=== PATIENT | female | born 1955 | race Caucasian/White ===

== ENCOUNTER → 2017-03-01 | Day surgery (SDC) | payer OTHER ==
[2017-03-01] VITALS (9 sets, daily range): BP systolic 126–140; BP diastolic 66–83; PULSE 55–62; RESP 12–19; O2SAT 97–99
[~2017-03-01] VITALS: Ht 172.7 cm; Wt 80.7 kg
[~2017-03-01] MED LIST: Albuterol-Ipratropium 3 mL Inhalation Solution NEB PRN; Atropine 0.4 mg/mL Inj IVPUSH PRN; Bupivacaine-MPF 0.5% W/EPI 30 mL Inj INFILTRATE ONE; CALC-714 PO; CeFAZolin Inj 2 gm / 50mL D5W IV ONE; Dexamethasone 4 mg/mL Inj INTRARTICU ONE; Dexamethasone 4 mg/mL Inj IVPUSH PRN; Dexamethasone 4 mg/mL Inj ONE; EPHEDrine Sulfate 50 mg/mL Inj IVPUSH PRN; HYDROmorphone 1 mg/mL Inj IVPUSH PRN; Labetalol 5 mg/mL 4 mL Inj IV PRN; Lactated Ringer's 1,000 ML IV ONE; Lactated Ringer's 1,000 ML IV SCH; Lactated Ringer's 500 ML IV PRN; MetoCLOpramide 5 mg/mL 2 mL Inj IVPUSH PRN; Ondansetron 2 mg/mL 2 mL Inj IVPUSH PRN; Ondansetron 2 mg/mL 2 mL Inj ONE; Phenylephrine 10,000 mCg/mL Inj IVPUSH PRN; Propofol 10,000 mCg/mL 20 mL Inj ONE; VIT1TABL95 PO; fentaNYL-PF 50 mCg/mL 2 mL Inj IVPUSH PRN
--- NOTE | 2017-03-01 07:32 | PCM.HPANE ---
Patient Data Date of Service: Mar 01, 2017 Surgeon Admitting Provider: Attending Provider:Grupo Mendiola MD Primary Care Physician:Josee Villalpando MD Other Provider:Car Tanner Anesthesia Reason for Visit Right Knee Arthritis Ht/WT & BMI Height (Feet): 5 Height (Inches): 8.00 Weight (Kilograms): 80.730 Body Mass Index 26.00 Allergies Coded Allergies: codeine (Unverified Allergy, Unknown, 02/26/17) ENTERED FROM UNCODED ALLERGIES Uncoded Allergies: CODEINE (Allergy, Unknown, 05/03/12) CODEINE (Generic ADR) (Adverse Reaction, Unknown, Y, 05/03/12) N/V Past Anesthesia History Anesthesia History: Positive for:: Anesthesia Reactions (post anesthic sickness for 6 months), Denies:: Abnormal Airway, Difficult Intubation, Fam Anesthesia Reaction, Fam Malignant Hypertherm, Malignant Hyperthermia Diabetes History Hx Diabetes?: No MRSA MRSA: No Medications Home Meds Incl Beta Federico: No Reported Medications Vit D3/Folic Acid/B2/B6/B12 (Folgard Tablet)1 Each Tablet1 Each PO 02/19/17 Calcium Carb/Magnesium Cmb #10 (Randell-Mag Tablet Chewable)1 Each Tab.[email or web address] Each PO 02/19/17 History History of ENT Problems?: No HEENT History: Denies:: Abnormal Airway Cataracts Difficult Intubation Dysphagia Glaucoma Hearing Problem Sinus Problem TMJ Denture Type: None Teeth Condition: Within Normal Limits Hx of Heart Problems?: Yes Cardiovascular History: Denies:: AICD Heart Murmur Hypertension Irregular Heartbeat Pacemaker Peripheral Vascular Rheumatic Fever Thrombophlebitis Valvular Heart Disease Hx of Respiratory Problem?: Yes Respiratory History: Positive for:: Cough Denies:: Asthma COPD Chest Surgery Dyspnea Emphysema Hemoptysis Oxygen Administration Pneumonia Pulmonary Embolism Tuberculosis Use of C-PAP Machine Hx Neurologic Problems?: No Neurological History: Denies:: Alzheimer's Disease CVA Dementia Dizziness Headaches Multiple Sclerosis Parkinson's Disease Seizures TIA Hx of GI Problems?: No Hx of Problems?: No Female Hx: Denies:: Currently Endometriosis Pelvic Inflammatory Problems with Breasts? Skin History: Denies:: History Skin Disorders? Pressure Ulcers Hx Musculoskeletal Problems?: Yes Musculoskeletal History: Positive for:: Degenerative Joint (Both knees) Osteoarthritis (Both knees) Denies:: Fibromyalgia Joint Replacement Musculoskeletal Trauma Myasthenia Gravis Rheumatoid Arthritis Systemic Lupus Hx Surgeries?: Yes Hx Any Other Health Problems?: Yes Other History: Positive for:: Hospitalization Denies:: Cancer Endocrine Disease Thyroid Disease History Blood Transfusions: Positive for:: Accept Blood Products? Denies:: Blood Transfusions Hx Diabetes: No Hx Alcohol Use: NoHx Substance Use: Yes (Topical) Stop/Bang S-Snoring: Do You Snore Loudly: Yes T-Tired: feel tired, fatigued: Yes O-Obsered: Observed not breath: No P-Blood Pressure: treated: No B- Body Mass Index > 35 kg/m2: No A- Age over 50: Yes N- Neck Large Circumference: No G- Gender Male: No RAMON Total Score: 3 RAMON Risk Assessment: High Risk, =/>3 Yes Risk Assessment Category Category 1A: Patient has history of documented sleep apnea, and HAS NOT received any narcotic, sedative or anesthesia administration during this stay. Category 1B: Patient has history of documented sleep apnea, and HAS received any narcotic , sedative or anesthesia administration during this stay Category 2: Patient has SUSPECTED Obstructive Sleep Apnea, and HAS received any narcotic , sedative or anesthesia administration during this stay. Category 3: Patient has SUSPECTED Obstructive Sleep Apnea and HAS NOT received narcotic, sedative or anesthesia administration during this stay. Category 4: Outpatient in Procedural Areas with known sleep apnea or who screen positive for High Risk via the STOP/BANG questionnaire. Exam Exam Vital Signs Vital Signs Date Time Temp Pulse Resp B/P Pulse Ox O2 Delivery O2 Flow Rate FiO2 03/01/17 06:26 36.8 55 17 138/66 97 Room Air General Appearance: Alert, Oriented X3, Cooperative, No Acute Distress HEENT/AIRWAY: MP 1 Lungs: Normal Air Movement Heart: Exam Unremarkable Meds/Labs/Diagnostics Admission Meds Current Medications Lactated Ringer's (Lr) 1,000 ml @ ud STK-MED ONCE IV Last administered on 03/01t 06:33; Start 03/01/17 at 06:33; Stop 03/01/17 at 06:34; Status DC Plan Impression Patient chart reviewed, patient interviewed and anesthestic plan with risks, benefits, and alternatives discussed, and informed consent obtained. ASA Physical Status: ASA2 Mod Systemic Disease Anesthetic Plan: GA Bene/Risks/Altern/Consents: Yes HP Complete Prior to Induction: Yes Other will avoid narcotics, mostly TIVA with propofol Siddhartha Encinas MD Mar 01, 2017 07:07
--- NOTE | 2017-03-01 08:40 | PCM.ANEP1 ---
Post Anesthesia PACU Phase 1 Assessment Date of Service: Mar 01, 2017 Vital Signs Vital Signs Date Time Temp Pulse Resp B/P Pulse Ox O2 Delivery O2 Flow Rate FiO2 03/01/17 08:30 60 15 126/67 Nasal Cannula 3 100 03/01/17 08:25 62 17 140/82 Nasal Cannula 3 100 03/01/17 08:20 57 19 131/80 Nasal Cannula 3 100 03/01/17 08:15 36.1 55 15 133/78 99 Nasal Cannula 3 100 03/01/17 06:26 36.8 55 17 138/66 97 Room Air Anesthetic Administered: GA Level of Alertness: Awake, talking VILLARREAL's with Equal Strength: Yes Pain: Yes Pain Scale Score: 3 Nausea or Vomiting: No CV Function & Hydration Stable: Yes Airway Device: Oxygen Delivery: Nasal Cannula Lungs: Normal Air Movement Dermatome Level: Full Sensation PACU Phase 2 Assessment Complications: No Follow up Care: N/A Patient Instructions Provided: N/A Siddhartha Encinas MD Mar 01, 2017 08:40
--- NOTE | 2017-03-01 08:56 | OP ---
[address] [id number] OPERATIVE REPORT PATIENT: IGOR PEREIRA : 1955 MR#: [id number] ADMIT: 03/01/2017 JOB ID: [id number] DATE OF SURGERY: 03/01/2017 PREOPERATIVE DIAGNOSIS(ES): Internal derangement and probable loose body right knee. POSTOPERATIVE DIAGNOSIS(ES): 1. Internal derangement and probable loose body right knee. 2. Chondral lesion medial femoral condyle. SURGEON: Grupo Mendiola MD SUPERVISOR CALIBRATION: None. COMPLICATIONS: None. INDICATIONS: The patient has ongoing significant mechanical symptoms in her knee. She elects to proceed with an arthroscopy and accepts the potential risks and complications, which include but is not limited to infection, thromboembolic, neurovascular events, as well as failure to adequately improve symptoms. FINDINGS OF SURGERY: Revealed mild patellofemoral arthritis, inflammation in the medial and lateral gutters and suprapatellar pouch. An 18 mm loose body found free-floating osteocartilaginous in nature in the medial gutter, intact ACL, mild softening lateral tibial plateau, intact articular cartilage on the femoral side, mild fraying of lateral meniscus but no mechanically significant lesions. A condylar lesion likely possibly the result of impingement from this loose body medial femoral condyle with moderate chondromalacia of the tibial plateau and mild fraying of the posterior horn of the medial meniscus. PROCEDURE: Following the diagnostic arthroscopy, attention was turned to creating an accessory portal at the medial aspect of the knee to introduce a clamp and remove the large 18 mm x 12 mm posterior cartilaginous loose body. Following this, a thorough diagnostic arthroscopy, no further loose bodies were encountered. Attention was turned to the medial compartment were a loose flap of articular cartilage of the medial femoral condyle was removed. This was performed with the basket. Limited shaving of the frayed margins of the meniscus, irrigated with sterile irrigant. The portals closed with nylon suture. The patient returned to the recovery room in stable condition. She tolerated the procedure well. There were no complications.
== END | disposition home or self-care (01) ==
LOC: SAS 05:47
PROVIDERS: ATTEND Orthopaedic Surgery
DX: M17.11 Unilateral primary osteoarthritis, right knee (principal); M23.41 Loose body in knee, right knee; Z79.899 Other long term (current) drug therapy; Z88.5 Allergy status to narcotic agent
CPT/HCPCS: 29877; J0131; J0690; J1100; J1885; J2405; J7120